=== PATIENT | female | born 1975 | race Caucasian/White ===

== ENCOUNTER 2018-01-28 16:23 | Emergency (ER) | payer OTHER ==
[~2018-01-28] VITALS: Ht 142.2 cm; Wt 55.8 kg
[2018-01-28 16:36] VITALS: Ht 142.2 cm; Wt 55.8 kg
[2018-01-28 17:59] LABS: UA SPECIFIC GRAVITY >=1.030 (1.005-1.035); microscopic required? YES; urine erythrocyte NEGATIVE (NEGATIVE)
[2018-01-28 18:21] LABS: AMPHETAMINE QUAL UR POSITIVE (NEG <=1000)
[2018-01-28 20:01] VITALS: BP 119/69
== END 2018-01-28 20:01 | disposition home or self-care (01) ==
LOC: ED 16:23
PROVIDERS: Emergency Medicine
DX: T67.5XXA Heat exhaustion, unspecified, initial encounter (principal); F17.210 Nicotine dependence, cigarettes, uncomplicated; J44.9 Chronic obstructive pulmonary disease, unspecified; F15.10 Other stimulant abuse, uncomplicated; E07.9 Disorder of thyroid, unspecified; Z88.0 Allergy status to penicillin; Z71.6 Tobacco abuse counseling; X30.XXXA Exposure to excessive natural heat, initial encounter; Y93.89 Activity, other specified; Y92.89 Other specified places as the place of occurrence of the external cause; Y99.8 Other external cause status
CPT/HCPCS: 83880; J2405; J7030; Q0092

== ENCOUNTER 2018-02-27 22:30 | Emergency (ER) | payer OTHER ==
[~2018-02-27] VITALS: Ht 142.2 cm; Wt 52.6 kg
[~2018-02-27 22:30] MED LIST: LEXAPRO10 MG PO; SERO100 PO
[2018-02-27 22:44] VITALS: Ht 142.2 cm; Wt 52.6 kg
[2018-02-28 01:57] LABS: BASOPHIL % 0.7 % (0-2); PLATELET COUNT 327 x10^3mcL (130-400); RED CELL DISTRIBUTION WIDTH 14.3 % (11.5-14.5)
[2018-02-28 02:03] LABS: CALCIUM 8.3 mg/dL (8.5-10.1); CARBON DIOXIDE 28.6 mmol/L (21-32); CHLORIDE SERUM 106 mmol/L (98-107); CREATININE SERUM 0.6 mg/dL (0.6-1.0); GFR1 > 60 mL/min; GLUCOSE SERUM 93 mg/dL (74-106); POTASSIUM SERUM 3.2 mmol/L (3.5-5.1); SODIUM SERUM 142 mmol/L (136-145)
[2018-02-28 02:07] LABS: ALBUMIN 3.4 g/dL (3.4-5.0); ALKALINE PHOSPHATASE 84 U/L (46-116); ALT/SGPT 18 U/L (14-59); AST/SGOT 20 U/L (15-37); BILIRUBIN TOTAL 0.27 mg/dL (0.20-1.00); TOTAL PROTEIN, SERUM 6.9 g/dL (6.4-8.2)
[2018-02-28 04:30] LABS: microscopic required? NO
[2018-02-28 05:13] LABS: UA SPECIFIC GRAVITY 1.025 (1.005-1.035); urine erythrocyte NEGATIVE (NEGATIVE)
[2018-02-28 05:45] LABS: AMPHETAMINE QUAL UR POSITIVE (NEG <=1000)
[2018-02-28 07:37] VITALS: BP 128/78
== END 2018-02-28 07:37 | disposition home or self-care (01) ==
LOC: ED 22:30
PROVIDERS: Emergency Medicine
DX: F15.10 Other stimulant abuse, uncomplicated (principal); R44.0 Auditory hallucinations; J44.9 Chronic obstructive pulmonary disease, unspecified; Z88.0 Allergy status to penicillin
CPT/HCPCS: 36415; G0480

== ENCOUNTER 2018-04-12 16:50 | Emergency (ER) | payer OTHER ==
[~2018-04-12] VITALS: Ht 157.5 cm; Wt 51.2 kg
[2018-04-12 17:10] VITALS: Ht 157.5 cm; Wt 51.2 kg
[2018-04-12 18:59] LABS: microscopic required? NO
[2018-04-12 19:04] LABS: UA SPECIFIC GRAVITY >=1.030 (1.005-1.035); urine erythrocyte NEGATIVE (NEGATIVE)
[2018-04-12 20:01] VITALS: BP 108/57
== END 2018-04-12 20:01 | disposition home or self-care (01) ==
LOC: ED 16:50
PROVIDERS: Emergency Medicine
DX: G89.29 Other chronic pain (principal); R10.9 Unspecified abdominal pain; R44.0 Auditory hallucinations; J44.9 Chronic obstructive pulmonary disease, unspecified; Z88.0 Allergy status to penicillin

== ENCOUNTER 2018-04-16 22:39 | Inpatient (IN) | payer OTHER ==
[~2018-04-16] VITALS: Ht 142.2 cm; Wt 51.4 kg
[2018-04-16 22:43] VITALS: Ht 142.2 cm; Wt 51.4 kg
[2018-04-16 23:53] LABS: BASOPHIL % 0.6 % (0-2); PLATELET COUNT 309 x10^3mcL (130-400)
[2018-04-16 23:59] LABS: RED CELL DISTRIBUTION WIDTH 14.7 % (11.5-14.5)
[2018-04-17 00:05] LABS: CALCIUM 8.6 mg/dL (8.5-10.1); CARBON DIOXIDE 31.2 mmol/L (21-32); CHLORIDE SERUM 106 mmol/L (98-107); CREATININE SERUM 0.8 mg/dL (0.6-1.0); GFR1 > 60 mL/min; GLUCOSE SERUM 92 mg/dL (74-106); POTASSIUM SERUM 4.5 mmol/L (3.5-5.1); SODIUM SERUM 139 mmol/L (136-145)
[2018-04-17 00:22] LABS: ALBUMIN 3.4 g/dL (3.4-5.0); ALKALINE PHOSPHATASE 89 U/L (46-116); ALT/SGPT 20 U/L (14-59); AST/SGOT 18 U/L (15-37); BILIRUBIN TOTAL 0.3 mg/dL (0.20-1.00); TOTAL PROTEIN, SERUM 6.8 g/dL (6.4-8.2)
[2018-04-17 01:39] LABS: AMPHETAMINE QUAL UR POSITIVE (See below)
[2018-04-17 19:08] LABS: microscopic required? NO
[2018-04-17 19:25] LABS: UA SPECIFIC GRAVITY >=1.030 (1.005-1.035); urine erythrocyte NEGATIVE (NEGATIVE)
[2018-04-17 19:32] VITALS: BP 105/51
[2018-04-17 19:50] LABS: FREE T4 0.88 ng/dL (0.76-1.46); FREE THYROXINE INDEX 1.9 ug/dL (1.4-4.5); T4(THYROXINE) 5.4 ug/dL (4.7-13.3)
[2018-04-17 19:51] LABS: T3 TOTAL 0.89 ng/mL
[2018-04-17 20:02] LABS: MAGNESIUM 1.9 mg/dL (1.8-2.4); PHOSPHOROUS 4.6 mg/dL (2.5-4.9)
[2018-04-17 20:45] LABS: CHOLESTEROL/HDL RATIO 3.2
[2018-04-18 06:04] VITALS: BP 99/56
[2018-04-18 06:07] LABS: BASOPHIL % 0.8 % (0-2); PLATELET COUNT 299 x10^3mcL (130-400)
[2018-04-18 06:16] LABS: CALCIUM 7.9 mg/dL (8.5-10.1); CARBON DIOXIDE 25.4 mmol/L (21-32); CHLORIDE SERUM 107 mmol/L (98-107); CREATININE SERUM 0.6 mg/dL (0.6-1.0); GFR1 > 60 mL/min; GLUCOSE SERUM 87 mg/dL (74-106); MAGNESIUM 1.9 mg/dL (1.8-2.4); PHOSPHOROUS 3.3 mg/dL (2.5-4.9); POTASSIUM SERUM 4.2 mmol/L (3.5-5.1); SODIUM SERUM 139 mmol/L (136-145)
[2018-04-18 06:45] LABS: RED CELL DISTRIBUTION WIDTH 14.9 % (11.5-14.5)
[2018-04-18 13:13] VITALS: BP 101/59
[2018-04-18 18:27] VITALS: BP 104/54
[2018-04-18 20:47] VITALS: BP 94/53
[2018-04-19 05:42] VITALS: BP 111/55
[2018-04-19 08:27] VITALS: BP 103/56
[2018-04-19] MEDS ORDERED: ZOLOFT50 MG PO (09:51)
[2018-04-19] MEDS ORDERED: ZYPREXA5 M1 PO (09:51)
[2018-04-19 11:04] VITALS: BP 103/56
== END 2018-04-19 13:00 | disposition home or self-care (01) | DRG 776 ==
LOC: ED 22:39 → DU 04-17 18:09
PROVIDERS: Emergency Medicine; Family Medicine
DX: F15.10 Other stimulant abuse, uncomplicated (principal); N17.0 Acute kidney failure with tubular necrosis; G92 Toxic encephalopathy; F33.3 Major depressive disorder, recurrent, severe with psychotic symptoms; R45.851 Suicidal ideations; R73.03 Prediabetes; F41.0 Panic disorder [episodic paroxysmal anxiety]; Z68.26 Body mass index [BMI] 26.0-26.9, adult; F17.210 Nicotine dependence, cigarettes, uncomplicated
CPT/HCPCS: 83880; 84439; G0480; J7030